=== PATIENT | male | born 1955 | race Caucasian/White ===

== ENCOUNTER 2020-02-08 11:15 | Outpatient (CLI) | payer MEDICARE, SELFPAY ==
--- NOTE | 2020-02-08 13:58 | PFTS_ITS ---
Date of Study:02/08/20 Date of Dictation: MECHANICS: Forced vital capacity (FVC) is normal. Forced expiratory volume in one second (FEV1) is normal. FEV1/FVC is normal. FLOW VOLUME LOOP: Mild scooping likely related to age or small airways disease. LUNG VOLUMES: Total lung capacity (TLC) is normal. Residual volume (RV) is normal. DIFFUSING CAPACITY FOR CARBON MONOXIDE: Mildly reduced. INTERPRETATION: The pulmonary function tests are normal. Lung volumes are normal. Gas exchange (DLCO) is mildly reduced. MTDD
== END 2020-02-08 11:16 | disposition home or self-care (01) ==
LOC: RT 11:16
PROVIDERS: PCP Family Medicine; Visit Provider Family Medicine
DX: R06.00 Dyspnea, unspecified (principal)
CPT/HCPCS: 94010; 94726; 94729

== ENCOUNTER → 2023-10-12 10:25 | Outpatient (BNVA) | payer MEDICARE, SELFPAY | PROVIDERS: PCP Nurse Practitioner Family; Visit Provider Anesthesiology Pain Medicine | DX: M17.11 Unilateral primary osteoarthritis, right knee (principal); M19.012 Primary osteoarthritis, left shoulder; M16.0 Bilateral primary osteoarthritis of hip; M25.561 Pain in right knee; M25.562 Pain in left knee; M25.512 Pain in left shoulder; M25.551 Pain in right hip; M25.552 Pain in left hip | CPT/HCPCS: 73030; 73521; 73522; 73562; 99204 ==

== ENCOUNTER → 2025-07-10 08:59 | Outpatient (BNVA) | payer MEDICARE, SELFPAY | PROVIDERS: PCP Family Medicine; Visit Provider Family Medicine | DX: R31.9 Hematuria, unspecified (principal) | CPT/HCPCS: 81000; 87086 ==

== ENCOUNTER → 2025-08-10 11:44 | Outpatient (BNVA) | payer MEDICARE, SELFPAY | PROVIDERS: PCP Family Medicine; Visit Provider Family Medicine | DX: E78.00 Pure hypercholesterolemia, unspecified (principal); I10 Essential (primary) hypertension; R31.9 Hematuria, unspecified; M15.0 Primary generalized (osteo)arthritis; Z86.73 Personal history of transient ischemic attack (TIA), and cerebral infarction without residual deficits; R53.83 Other fatigue; Z11.59 Encounter for screening for other viral diseases; Z79.891 Long term (current) use of opiate analgesic | CPT/HCPCS: 80053; 80061; 82607; 84439; 84443; 85025; 86803; G0103 ==